=== PATIENT | female | born 1950 | race Caucasian/White ===

== ENCOUNTER → 2017-03-29 | Outpatient (CLI) | payer MEDICARE ==
--- NOTE | 2017-03-29 10:23 | RAD ---
DATE: 03/29/2017 EXAM: MAMMO [facility] SCREENING BILATERAL HISTORY: Routine screening COMPARISON: 11/19/2014 The breast parenchyma is heterogeneously dense, which could reduce sensitivity of mammography. Breast parenchyma level C. FINDINGS: 2-D and 3-D tomosynthesis imaging was performed in CC and MLO projections. No new or enlarging breast densities are seen. There is an unchanged small lymph node type density in the posterolateral aspect of the right breast. An old breast biopsy marker is present at the 12:00 location in the left breast. Benign type calcifications are present. No suspicious microcalcifications have developed. IMPRESSION: Stable mammograms without evidence of malignancy. BI-RADS CATEGORY: 2 BENIGN FINDING(S) RECOMMENDED FOLLOW-UP: 12M 12 MONTH FOLLOW-UP PQRS compliance statement: Patient information was entered into a reminder system with a target due date for the next mammogram. Mammography is a sensitive method for finding small breast cancers, but it does not detect them all and is not a substitute for careful clinical examination. A negative mammogram does not negate a clinically suspicious finding and should not result in delay in biopsying a clinically suspicious abnormality. "Our facility is accredited by the [employer] Mammography Program."
== END | disposition home or self-care (01) ==
LOC: KCIC MAMMO 08:59
PROVIDERS: ATTEND Family Medicine
DX: Z12.31 Encounter for screening mammogram for malignant neoplasm of breast (principal)
CPT/HCPCS: 77063; G0202; 77067

== ENCOUNTER → 2019-08-06 | Day surgery (SDC) | payer MEDICARE, OTHER ==
[~2019-08-06] MED LIST: IV RINGERS,LACTATED 1000ML 1,000 ML IV SCH; LIDOCAINE 2% PF 5 ML VIAL. ONE; PROPOFOL 20 ML IV ONE
[2019-08-06 09:40] VITALS: BP 146/79
--- NOTE | 2019-08-06 12:02 | PREOP HP ---
DATE OF SERVICE: 08/07/2019 DATE OF PROCEDURE: 08/07/2019 REQUESTING PHYSICIAN: Jenna Berg MD PRIMARY CARE PHYSICIAN: Jenna Breg MD REASON FOR PROCEDURE: Follow up on esophagitis. HISTORY OF PRESENT ILLNESS: This is a 69-year-old female who underwent an EGD on 01/30/2019 that revealed grade 4 esophagitis and gastric ulcers. She is here for followup. ALLERGIES: No known drug allergies. MEDICATIONS: None. PAST MEDICAL HISTORY: 1. Guillain-Davis. 2. Osteoarthritis. 3. Diverticulosis. 4. Colon polyps. 5. Esophagitis. FAMILY MEDICAL HISTORY: Colon cancer, negative. SOCIAL HISTORY: Occasional alcohol. No tobacco or IV drug abuse. REVIEW OF SYSTEMS: A 13-point review of systems was done. It is positive as per HPI and otherwise negative. PHYSICAL EXAMINATION: VITAL SIGNS: She is afebrile and her vital signs are stable. GENERAL: She is a well-developed, well-nourished female, in no apparent distress. HEENT: Oropharynx is clear. CARDIOVASCULAR: S1, S2. LUNGS: Clear. ABDOMEN: Normoactive bowel sounds, soft, nontender, nondistended. EXTREMITIES: No edema. NEUROLOGIC: Awake, alert and oriented x 3. ASSESSMENT AND PLAN: Esophagitis. We will proceed with upper endoscopy for further evaluation. The risks and benefits including bleeding, perforation, non-diagnosis and sedation were explained and she has agreed to proceed. MAE ARROYO MD DR: HILARY/olga JOB#: [id number] / [id number]
--- NOTE | 2019-08-07 13:07 | PATHOLOGY ---
[facility] Accession Number: [id number] . 01 Material submitted: . PART A: small bowel - SMALL BOWEL BX PART B: stomach - GASTRIC ANTRUM BX PART C: esophagus - DISTAL ESOPHAGUS BX. Modifiers: distal . 01 Clinical history: . GERD . 02 Diagnosis: A. Small bowel, biopsy: - No pathologic diagnosis. - Normal villous architecture. . B. Stomach, antrum, biopsy: - Mild chronic inflammation, nonspecific. - No evidence of Helicobacter pylori on immunoperoxidase stain. . C. Esophagus, distal, biopsy: - Columnar epithelium with mild to moderate acute and chronic inflammation and no evidence of intestinal metaplasia. - Adjacent squamous epithelium with no pathologic diagnosis. . (SKM:mm; 08/07/2019) [facility] 08/07/2019 1012 Local . 02 Electronically signed: . Hawk Waters MD, Pathologist NPI- [id number] . 01 Gross description: . A. The specimen is received in formalin, labeled "Emy Snyder, small bowel biopsy". Received are four segments of pale wei soft tissue ranging in size from 0.4 to 0.5 cm in maximum dimensions. The specimen is submitted entirely in cassette A1. . B. The specimen is received in formalin, labeled "Emy Snyder, gastric antrum biopsy". Received are three segments of pale wei soft tissue ranging in size from 0.3 to 0.5 cm in maximum dimensions. The specimen is submitted entirely in cassette B1. . C. The specimen is received in formalin, labeled "Emy Snyder, distal esophagus biopsy". Received are five segments of pale wei soft tissue ranging in size from 0.4 to 0.5 cm in maximum dimensions. The specimen is submitted entirely in cassette C1. (CAA; 08/06/2019) QAC/QAC 08/06/2019 1508 Local . 02 Pathologist provided ICD-10: K29.50, K20.9 . 02 CPT . 624652, 144983, [id number] Specimen Comment: A courtesy copy of this report has been sent to [phone], [phone] Specimen Comment: [id number] Specimen Comment: Report sent to / DR MEYER Performed at: [facility] [address], [place] [id number] MD Shashank Her MD Phone: [phone] Performed at: 02 [facility] [address], [place] [id number] MD Nakul Mathur MD Phone: [phone]
== END ==
LOC: ENDOS 07:56
PROVIDERS: ATTEND Internal Medicine Gastroenterology
DX: K21.0 Gastro-esophageal reflux disease with esophagitis (principal); K29.50 Unspecified chronic gastritis without bleeding; K57.10 Diverticulosis of small intestine without perforation or abscess without bleeding; K57.30 Diverticulosis of large intestine without perforation or abscess without bleeding; Z87.39 Personal history of other diseases of the musculoskeletal system and connective tissue; Z86.010 Personal history of colon polyps; Z80.0 Family history of malignant neoplasm of digestive organs; Z72.89 Other problems related to lifestyle
CPT/HCPCS: 43239; 88305; 88342; J2001; J2704

== ENCOUNTER → 2021-05-08 | Outpatient (CLI) | payer MEDICARE, OTHER ==
[2019-08-06 09:40] VITALS: BP 146/79
--- NOTE | 2021-05-08 11:58 | KCIC ---
Bilateral digital screening mammograms with 3-D tomosynthesis: Reason for examination: Routine screening. Comparison is made to previous studies dated 03/29/2017 and 11/19/2014. Bilateral mammograms in CC and oblique projections were obtained with 2-D imaging and 3-D tomosynthes is imaging on a Siemens Inspiration unit and reviewed on the workstation. Interpretation was made wit h the benefit of CAD. The skin and nipples show no abnormalities. No abnormal axillary lymph nodes are seen. The breast par enchyma is extremely dense. (Breast density: Category D.) There appear to be small parenchymal densit ies anterior superiorly in the upper inner quadrant of the left breast measuring up to 1.2 cm in size . There is a small nodular density at the 9:00 position of the right breast approximately 3 cm director of technology ior to the nipple and measuring approximately 1.5 cm in size. There is also an additional small nodul ar parenchymal densities suggesting medially and slightly inferior to the nipple line in the right br east 4 cm posterior to the nipple and measuring approximately 1 cm in greatest dimension. Further julio luation with bilateral breast ultrasound is recommended. No suspicious calcifications are seen. Benig n calcifications are present. Impression: Small nodular densities bilaterally. Recommend further evaluation with ultrasound. Your patient's mammogram demonstrates that she has dense breast tissue (breast density category C or D), which could hide abnormalities, and if she has other risk factors for breast cancer that have bee n identified, she might benefit from supplemental screening tests that may be suggested by you as her ordering physician. Dense breast tissue, in and of itself, is a relatively common condition. Therefo re, this information is not provided to cause undue concern, but rather to raise your awareness and t o promote discussion with your patient regarding the presence of other risk factors, in addition to d ense breast tissue. Your patient's mammography results will be sent to her. BI-RAD Category 0: Incomplete. Needs additional imaging evaluation. "Our facility is accredited by the [employer] Mammography Program." This patient's information has been entered into a reminder system for the patient to be notified wit h the results of her examination and a target date for the next mammogram. Electronically signed by: Tamiko Newton MD (05/08/2021 11:55 AM) [facility]
--- NOTE | 2021-05-08 15:43 | KCIC ---
INDICATION: Screening for osteopenia/osteoporosis. Reason: POST MENOPAUSAL / Spl. Instructions: / H istory: COMPARISON: None. TECHNIQUE: Bone densitometry was performed through the lumbar spine and proximal femur. IMPRESSION: Lumbar Spine: BMD: 0.94 T-Score: -1.0 Range: Osteopenic Proximal Femur: BMD: 0.77 T-Score: -1.4 Range: Osteopenic World Health Organization Criteria for Bone Density: T-Score: > -1.0: Normal Range < -1.0 to -2.5: Osteopenic Range < -2.5: Osteoporotic Range Electronically signed by: Jacques Ramos MD (05/08/2021 3:40 PM) [id number]
== END ==
LOC: KCIC MAMMO 09:46
PROVIDERS: ATTEND Family Medicine
DX: Z12.31 Encounter for screening mammogram for malignant neoplasm of breast (principal); M85.89 Other specified disorders of bone density and structure, multiple sites; N95.9 Unspecified menopausal and perimenopausal disorder
CPT/HCPCS: 77063; 77067; 77080

== ENCOUNTER → 2021-09-19 | Outpatient (CLI) | payer MEDICARE, OTHER ==
[2019-08-06 09:40] VITALS: BP 146/79
--- NOTE | 2021-09-19 10:20 | KCIC ---
Bilateral breast ultrasound: Reason for examination: Nodular densities on screening mammogram. Comparison is made to mammographic exam dated 05/08/2021. Ultrasound examination was performed bilaterally of the breasts and axilla. In the right breast, there is ductal ectasia and fibrocystic type changes at the 9:00 position 3 cm f rom the nipple. No suspicious nodules are seen. No abnormal appearing lymph nodes are seen in the rig ht axilla. In the left breast, there is a focus of fibrocystic-type change at the 9:00 position 6 cm from the ni pple measuring 7 mm in greatest dimension with no abnormal vascularity seen. No other discrete cystic or solid nodules are seen. No abnormal appearing lymph nodes are seen in the left axilla. IMPRESSION: Fibrocystic changes seen in the breasts bilaterally. No suspicious lesion seen. Recommend 6 month fol low-up with bilateral breast ultrasound. BI-RADS Category 3: Probably Benign. "Our facility is accredited by the [employer] Mammography Program." This patient's information has been entered into a reminder system for the patient to be notified wit h the results of her examination and a target date for the next mammogram. Electronically signed by: Tamiko Newton MD (09/19/2021 10:18 AM) [id number]
== END ==
LOC: KCIC US 07:51
PROVIDERS: ATTEND Family Medicine
DX: R92.8 Other abnormal and inconclusive findings on diagnostic imaging of breast (principal)
CPT/HCPCS: 76641